=== PATIENT | female | born 2000 | race Caucasian/White ===

== ENCOUNTER → 2018-07-15 16:54 | Outpatient (CLI) | payer BC, SELFPAY ==
[2018-07-15 17:40] LABS: Absolute Lymphocyte Count 1.13 X10^3/ul (0.83-4.51); Absolute Neutrophil Count 7.8 X10^3/uL (2.0-7.7); Basophil# 0.02 X10^3/uL; Basophil% 0.2 % (0-1); Hematocrit 36.8 % (37-47); Hemoglobin 12.5 g/dl (12.0-15.0); Lymphocyte # 1.13 X10^3/ul (4.0); Lymphocyte % 11.5 % (19-41); Mean Corpuscular Hgb 29.2 pg (27.0-32.0); Mean Platelet Vol. 11.4 fl (6.2-12.0); Monocyte# 0.74 X10^3/uL; Monocyte% 7.5 % (0-10); Neutrophil # 7.81 X10^3/uL (2.7-7.7); Neutrophil % 79.6 % (47-70); Platelet Count 190 K/mm3 (150-450); RBC Distribution Width CV 12.5 % (11.6-14.6); RBC Distribution Width SD 38.1 fl (35.1-43.9); Red Blood Count 4.28 M/mm3 (4.2-5.4); White Blood Count 9.8 K/mm3 (4.4-11.0)
[2018-07-15 17:41] LABS: POSITIVE COUNT NO; POSITIVE DIFFERENTIAL NO; POSITIVE MORPHOLOGY NO
[2018-07-15 18:20] LABS: ALB/GLOB Ratio 1.2 RATIO (0.9-2.4); AST(SGOT) 20 U/L (15-37); Alanine Aminotransfer ALT/SGPT 26 U/L (13-56); Albumin, Serum 4.1 g/dL (3.2-5.0); Alkaline Phosphatase 76 U/L (45-117); Anion Gap 16 (5-15); BUN 11 mg/dL (7-18); BUN/Creat Ratio 12.8 RATIO (10-20); Calcium,Total 8.9 mg/dL (8.5-10.1); Chloride 104 mmol/L (98-107); Creatinine, Serum 0.86 mg/dL (0.55-1.02); EST Glomerular Filtration Rate 90 mL/min (>60); Est Glom Filt Rate - Afr Amer 109 mL/min (>60); Globulin 3.4 g/dL (2.2-4.2); Glucose 77 mg/dL (74-106); Potassium 3.5 mmol/L (3.5-5.1); Protein, Total 7.5 g/dL (6.4-8.2); Sodium Level 139 mmol/L (136-145)
== END ==
PROVIDERS: Family Provider Family Medicine; PCP Family Medicine; Referring Provider Family Medicine; Visit Provider Family Medicine
DX: R63.4 Abnormal weight loss (principal)
CPT/HCPCS: 36415; 80053; 84443; 85025

== ENCOUNTER 2018-07-15 21:32 | Emergency (ER) | payer BC, SELFPAY ==
[2018-07-15 21:33] VITALS: BP 139/76; PULSE 115; RESP 16; TEMP 36.5; O2SAT 97; BMI 22.3
[2018-07-15] MEDS: Ondansetron 4 MG/2 ML Vial IV (22:54)
[2018-07-15] MEDS: 0.9% Normal Saline 1,000 ML 1000 ML IV (22:54)
--- NOTE | 2018-07-15 23:40 | ED.DCSUM_ITS ---
- ER Visit Summary Date of Service: 07/15/18 Chief Complaint: Lightheadedness, pallor with nausea and vomiting after donating blood History of Present Illness: The patient is a 17 F who presents after vagal response with nausea and vomiting x6 after donating blood. She is never had a reaction in the past. She states she is lightheaded when she stands. She does not feel well. She feels out of sorts. She denies headache, ocular, visual auditory symptoms. Has trouble with speech or swallowing. She denies respiratory symptoms. She denies urologic symptoms. She is on no medication. She has no allergies. Physical Examination: Vital signs are remarkable for a heart rate of 115. Monitor reveals sinus tachycardia 110. She appears pale. Head is atraumatic normocephalic. Pupils are equal round reactive. Extraocular muscles are intact. TMs are pearly white with landmarks noted. Nares patent with no drainage. Posterior pharynx without erythema or exudate. Uvula is midline. There is no dysphonia or dysphasia. Trachea is midline. There is no stridor with auscultation of the neck. Heart is regular without murmur, gallop or rub. S1 and S2 are normal. Lungs are clear to auscultation with good movement of air bilaterally. Abdomen soft minimal tenderness slightly increased bowel sounds with no guarding rebound tenderness. Neuro exam is nonfocal. Test Results: None obtained Emergency Department Course and Treatment: Normal saline 1 L wide open. 4 mg of Zofran IV push. Patient was reassessed at 2335. She is no longer pale. She reports feeling better. She is no longer tachycardic. Treatment Plan: Symptomatic treatment Disposition: Discharged home in stable improved condition Impression: 1. Vasovagal response secondary to donating blood 2. Sinus tachycardia documented on monitor 3. Nausea and vomiting 4. Mild dehydration This note was generated with [employer] dictation software. It may contain incorrect words, spelling, and punctuation that were not noted in review of the chart prior to signing ED Disposition - Plan for ED Patient: Disposition: Home or Assisted Living Instructions: ED Near Syncope Vasovagal Referrals: Marta Davalos MD [Primary Care Provider] - As Needed
[2018-07-15 23:49] VITALS: BP 112/68; PULSE 88; RESP 16; O2SAT 98
== END 2018-07-15 23:52 | disposition home or self-care (01) ==
PROVIDERS: Emergency Provider Emergency Medicine; Family Provider Family Medicine; PCP Family Medicine
DX: R55 Syncope and collapse (principal); R00.0 Tachycardia, unspecified; R11.2 Nausea with vomiting, unspecified; E86.0 Dehydration
CPT/HCPCS: 96361; 96374; 99285; J2405

== ENCOUNTER → 2018-07-22 10:08 | Outpatient (CLI) | payer BC, SELFPAY ==
[2018-07-15 21:33] VITALS: BMI 22.3
--- NOTE | 2018-07-22 10:12 | US_ITS ---
STUDY: ABDOMINAL ULTRASOUND REASON FOR EXAM: Female, 17 years old. Weight loss. TECHNIQUE: Transabdominal ultrasound was performed with real-time and static lucas scale imaging. TECHNICAL QUALITY: Adequate. COMPARISON: None. FINDINGS: Liver: The liver measures 14.46 cm. There is normal echogenicity of the liver. The bile ducts are within normal limits. There is hepatic color flow. The direction of portal flow is hepatopetal. There is no demonstrated mass lesion. Gallbladder: Normal distended gallbladder. The gallbladder wall measures 2.2 mm. There is a negative sonographic Gaxiola's sign. There is no pericholecystic fluid. There are no gallstones. Common Bile Duct (C.B.D.): The common bile duct measures 3.4 mm. Pancreas: Normal size of the head, body and tail of the pancreas. There is normal echogenicity of the pancreas. There is no demonstrated pancreatic mass or cyst. Spleen: Normal size of the spleen. The spleen measures 7.5 cm. Right Kidney: Normal size of the right kidney. The right kidney measures 9.7 cm in length. Normal renal cortex. There is no demonstrated renal mass or cyst. There is no right hydronephrosis. Left Kidney: Normal size of the left kidney. The left kidney measures 10.5 cm in length. Normal renal cortex. There is no demonstrated renal mass or cyst. There is no left hydronephrosis. Aorta: The visualized abdominal aorta is within normal limits. I.V.C.: The IVC is patent. There is no ascites. US/Abdomen Complete IMPRESSION: Within normal limits abdominal ultrasound examination. Electronically Signed: Charmaine Fuentes MD at 17:12 EST Tel , Service support ,
== END ==
PROVIDERS: Family Provider Family Medicine; PCP Family Medicine; Referring Provider Family Medicine; Visit Provider Family Medicine
DX: R63.4 Abnormal weight loss (principal)
CPT/HCPCS: 76700